=== PATIENT | male | born 1980 | race Hispanic/Latino ===

== ENCOUNTER 2019-06-17 02:23 | Emergency (ER) | payer SELFPAY ==
[~2019-06-17] VITALS: Ht 167.6 cm; Wt 90.7 kg
[2019-06-17] MEDS ORDERED: NAPROSYN500 MG PO (03:04)
[2019-06-17] MEDS ORDERED: KEFLEX500 MG PO (03:04)
[2019-06-17] MEDS ORDERED: NEOMYCIN/POLYMYX/BACITR OINT 0.9 GM PKT ONE (03:05)
[2019-06-17 03:13] VITALS: BP 120/69
== END 2019-06-17 03:15 | disposition home or self-care (01) ==
LOC: FSED 02:23
DX: S61.412A Laceration without foreign body of left hand, initial encounter (principal); W26.0XXA Contact with knife, initial encounter; Y92.008 Other place in unspecified non-institutional (private) residence as the place of occurrence of the external cause; F43.10 Post-traumatic stress disorder, unspecified
CPT/HCPCS: 99283